=== PATIENT | female | born 1975 | race Caucasian/White ===

== ENCOUNTER 2016-07-15 09:58 | Emergency (ER) | payer MEDICARE, OTHER | END 2016-07-15 12:22 | disposition short-term general hospital (02) | LOC: ER 09:58 → EDBD 09:58 → ER 12:22 | DX: S06.6X9A Traumatic subarachnoid hemorrhage with loss of consciousness of unspecified duration, initial encounter (principal); S99.919A Unspecified injury of unspecified ankle, initial encounter; F19.10 Other psychoactive substance abuse, uncomplicated; Z88.1 Allergy status to other antibiotic agents; Z88.8 Allergy status to other drugs, medicaments and biological substances; Z88.6 Allergy status to analgesic agent; Z88.2 Allergy status to sulfonamides; X58.XXXA Exposure to other specified factors, initial encounter | CPT/HCPCS: 36415; 51702; 80307; 87502; 96361; 96365; 96375; 96376; J0330; J1100 ==